=== PATIENT | male | born 1985 | race Hispanic/Latino ===

== ENCOUNTER 2025-07-21 11:07 | Emergency (ER) | payer OTHER ==
[~2025-07-21] VITALS: Ht 175.3 cm; Wt 87.1 kg
--- NOTE | 2025-07-21 11:13 | ERN ---
ED Note History of Present Illness Stated Complaint: SORE THROAT Chief Complaint: Sore Throat Time Seen by MD: 11:11 Dictation: PATIENT IS A 40-YEAR-OLD MALE COMING IN TODAY WITH FLU-LIKE SYMPTOMS TO INCLUDE SORE THROAT WITH PAINFUL SWALLOWING BODY ACHES MALAISE LOW-GRADE FEVER FOR THE LAST TWO DAYS. NO NAUSEA VOMITING NO DIARRHEA. NO LOSS OF TASTE OR SMELL NO COUGH. NO PRIMARY CARE DOCTOR Allergies: Coded Allergies: No Known Allergies (Unverified Allergy, Unknown, 07/21/25) Past Medical History Past Medical History: No Pertinent History Surgical History: None RN Note Reviewed/Agreed w/PFSH: Yes Review of System Dictation CONSTITUTIONAL: NEGATIVE EXCEPT FOR HPI FEVER CHILLS/MALAISE HEAD/FACE: NEGATIVE EXCEPT FOR HPI EENT: NEGATIVE EXCEPT FOR HPI SORE THROAT WITH PAINFUL SWALLOWING RESPIRATORY: NEGATIVE EXCEPT FOR HPI GASTROINTESTINAL/ABDOMINAL: NEGATIVE EXCEPT FOR HPI GENITOURINARY: NEGATIVE EXCEPT FOR HPI MUSCULOSKELETAL: NEGATIVE EXCEPT FOR HPI INTEGUMENTARY: NEGATIVE EXCEPT FOR HPI NEUROLOGICAL/PSYCH: NEGATIVE EXCEPT FOR HPI HEMATOLOGIC/LYMPHATIC: NEGATIVE EXCEPT FOR HPI ALL SYSTEMS NEGATIVE, EXCEPT NOTED ABOVE. 13 POINT REVIEW OF SYSTEMS ASSESSED AND ALL NEGATIVE EXCEPT FOR ABOVE. Initial Vital Sign VS Vital Signs Date Time Temp Pulse Resp B/P (MAP) Pulse Ox O2 Delivery O2 Flow Rate FiO2 07/21/25 11:08 97.7 84 20 130/89 99 Room Air 07/21/25 12:21 0 21 Physical Exam Dictation VITAL SIGNS REVIEWED GENERAL APPEARANCE: ALERT, ORIENTED X 3, MILD ACUTE DISTRESS, WELL DEVELOPED, NOURISHED. HEAD AND FACE: NON-TRAUMATIC. EYES: PERRL, PINK CONJUNCTIVAS, EYELID NO TRAUMA, ANTERIOR CHAMBER WITH ARCUS SENILIS. EARS: PINNAS INTACT AND NO SIGNS OF TRAUMA OR ERYTHEMA EAR CANALS CLEAR AND NO DISCHARGE TM NO ERYTHEMA NOSE: NO DISCHARGE, NO BLEEDING. OROPHARYNX: MOUTH NORMAL, TONGUE PINK, PHARYNX CLEAR, MILD PHARYNGEAL ERYTHEMA, TONSILS NO EXUDATES, NO ABSCESSES NOTED, MUCOUS MEMBRANE MOIST UVULA MIDLINE, VOICE IS CLEAR NECK: SUPPLE, NON-TENDER, NO THYROMEGALY, NO MASSES, NO JVD, NO BRUITS BREAST:DEFERRED CHEST:NO TENDERNESS, NO CREPITUS, NO PARADOXICAL MOVEMENT, NO RETRACTIONS LUNGS:CLEAR, WELL-VENTILATED, SYMMETRIC, NO RALES, NO WHEEZING, NO RHONCHI, NO STRIDOR, GOOD BREATH SOUNDS BILATERALLY HEART: REGULAR RATE, REGULAR RHYTHM, NO MURMUR, NO GALLOPS VASCULAR: NO PERIPHERAL EDEMA, ABDOMEN: SOFT, POSITIVE BOWEL SOUNDS, NONDISTENDED, NO GUARDING, NONTENDER, NO REBOUND, NO MASSES NO HEPATOMEGALY, NO SPLENOMEGALY, NO HAN'S SIGN, NO HERNIAS. RECTAL: DEFERRED GENITAL: DEFERRED NEUROLOGICAL: NORMAL SPEECH, MOTOR FUNCTION INTACT, SENSORY FUNCTION INTACT MUSCULOSKELETAL: NECK NONTENDER, FULL RANGE OF MOTION, BACK NONTENDER, FULL RANGE OF MOTION, EXTREMITIES: NONTENDER, FULL RANGE OF MOTION SKIN: COLOR PINK, DRY, NO TURGOR, NO RASH, NO LACERATIONS, NO ABRASIONS, NO CONTUSIONS. LYMPHATIC: DEFERRED Results (Laboratory/Radiology) Laboratory/Radiology Laboratory Tests Test 07/21/25 12:23 Influenza Type A Antigen Negative For Type A Influenza Type B Antigen Negative For Type B SARS-CoV-2 Antigen (Rapid) PRESUMPTIVE NEGATIVE Labs Reviewed?: Yes ED Course ED Course Orders Procedure Category Date Status Time Covid19 (Sars Antigen LAB 07/21/25 Complete Rapid) 11:11 Influenza Type A & B, LAB 07/21/25 Complete Rapid 11:11 Vital Signs Date Time Temp Pulse Resp B/P (MAP) Pulse Ox O2 Delivery O2 Flow Rate FiO2 07/21/25 12:21 97.7 84 20 130/89 99 Room Air* 0 21 07/21/25 11:08 97.7 84 20 130/89 99 Room Air 1325/PATIENT IS A NEGATIVE FOR FLU AND INFLUENZA AND SARS COVID. HE WILL BE TREATED FOR ACUTE PHARYNGITIS UNSPECIFIED WITH THE AUGMENTIN WRITTEN OUT OF WORK UNTIL 07/23/2025 Medical Decision Making MDM DECISION-MAKING BASED ON SWABS FOR SARS COVID AND INFLUENZA TO RULE OUT VIRAL SYNDROME PATIENT WILL BE TREATED EMPIRICALLY FOR ACUTE TONSILLITIS UNSPECIFIED AUGMENTIN 875 PRESCRIBED B.I.D. SEVEN DAYS PATIENT WRITTEN OUT WORK AND TOLD TO FOLLOW BACK UP WITH HIS DOCTOR IN THE NEXT 2-3 DAYS FOR RETURN TO WORK. DX & DISP Disposition: Discharge Departure Impression: Primary Impression: Acute pharyngitis, unspecified Condition: Stable Scripts Ibuprofen (Ibuprofen 800 mg Tab) 800 Mg Tab 800 MG PO Q8H PRN for fever or pain, #30 TAB 0 Refills Prov: SAMUEL RICARDO [employer] DEVELOPER 07/21/25 Amoxicillin/Potassium Clav (Amox Tr-K Clv 875-125 mg Tab) 875 Mg-125 Mg Tablet 1 EACH PO BID for 10 Days, #20 TAB 0 Refills Prov: SAMUEL RICARDO 07/21/25 Additional Instructions: FOLLOW-UP WITH PRIMARY CARE PROVIDER IN 1 TO 2 DAYS. TAKE MEDICATIONS DIRECTED HERE IN THE EMERGENCY ROOM. OKAY TO CONTINUE HOME MEDICATIONS UNLESS OTHERWISE DISCUSSED DURING YOUR VISIT IN THE EMERGENCY ROOM TODAY. RETURN TO YOUR NEAREST EMERGENCY ROOM IF SYMPTOMS WORSEN OR IF THERE IS NO IMPROVEMENT. CALL 911 IF YOU NEED IMMEDIATE ASSISTANCE. TAKE TYLENOL OR MOTRIN OVER-THE- COUNTER NEEDED AND IF NO CONTRAINDICATIONS ARE PRESENT. INCREASE ORAL HYDRATION. A WOUND CULTURE OR URINE CULTURE WAS ORDERED HERE IN THE EMERGENCY ROOM DEPARTMENT PLEASE FOLLOW-UP WITH PRIMARY CARE PROVIDER AND ADVISE THEM TO GET REPEAT PORTS FROM OUR FACILITY. IF YOU HAD ANY PEDRO WRAP/SPLINTS THAT WERE APPLIED HERE, PLEASE DO NOT REMOVE THEM UNTIL YOU SEE YOUR PRIMARY CARE OR SPECIALTY. TAKE ANTIBIOTICS DIRECTED UNTIL GONE. INCREASE YOUR WATER INTAKE. TAKE IBUPROFEN WITH FOOD NEEDED FOR FEVER PAIN. NO WORK UNTIL 07/23/2025 FOLLOWING YOUR DOCTOR'S INSTRUCTIONS Time of Disposition: 13:26 I have reviewed the case, and I agree with, Diagnosis and Plan SAMUEL RICARDO Jul 21, 2025 11:13
[2025-07-21 13:05] LABS: INFLUENZA TYPE A Negative For Type A (NEGATIVE); INFLUENZA TYPE B Negative For Type B (NEGATIVE)
[2025-07-21 13:10] LABS: COVID19 (SARS ANTIGEN RAPID) PRESUMPTIVE NEGATIVE (NEGATIVE)
[2025-07-21] MEDS ORDERED: IBUP-2077 PO (13:27)
[2025-07-21] MEDS ORDERED: AMOX1TAB16 PO (13:27)
[2025-07-21 13:31] VITALS: BP 124/78; PULSE 80; RESP 20; TEMP 97.7; O2SAT 99
== END 2025-07-21 13:33 | disposition home or self-care (01) ==
LOC: EDH 11:07
DX: J02.9 Acute pharyngitis, unspecified (principal); R50.9 Fever, unspecified; Z20.822 Contact with and (suspected) exposure to COVID-19
CPT/HCPCS: 87426; 87804; 99283